=== PATIENT | male | born 1990 | race Caucasian/White ===

== ENCOUNTER 2016-07-01 14:08 | Emergency (ER) | payer MEDICAID ==
[2016-07-01] MEDS ORDERED: NALOXONE 2 MG/2 ML SYRINGE ONE (14:21)
[2016-07-01 14:27] VITALS: TEMP 98.4; BMI 22.3
[2016-07-01] MEDS ORDERED: ONDANSETRON HCL 4 MG/2 ML VIAL IV ONE (14:29)
[2016-07-01] MEDS ORDERED: NALOXONE 2 MG/2 ML SYRINGE IV STA (14:29)
--- NOTE | 2016-07-01 15:13 | EDPRACDOC ---
- General Information Chief Complaint: Altered Mental Status Time Seen by Provider: 07/01/16 15:07 Information Source: Patient Mode Of Arrival: Ambulance Home Medications: Home Medications No Home Medications 05/20/13 Allergies/Adverse Reactions: Allergies Allergy/AdvReac Type Severity Reaction Status Date / Time No Known Allergies Allergy Verified 07/01/16 14:27 - History of Present Illness Onset: TODAY HPI: EMS REPORTS PT WITH O2 SATS 50%, RESP RATE 2 UPON THEIR ARRIVAL. EMS BAGGED PT FOR ABOUT 2-3 MIN. FAMILY REPORTS PT HAD PERIORBITAL CYANOSIS. PT STATES HE TOOK A PAIN PILL OXY 30MG AND WENT TO SLEEP. PT DENIES SI/HI. DENIES ANY INTENTION OF HURTING HIMSELF. URI SYMPTOMS FOR SEVERAL DAYS. PT RECEIVED NARCAN IN ED. PT ADMITS TO SNORTING THE OXY. 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 - Treatment Prior to ED Arrival Reported Medications/Treatment EX[facility] EMS Treatment ALS IV No ED Past Medical History - History Reviewed Yes Nurses notes reviewed and agree except as marked EDM Review of Systems - Review of Systems ROS Negative Except as Marked: Yes All systems reviewed and were negative except as marked Constitutional: No Symptoms Reported Respiratory: No Symptoms Reported Cardiovascular: No Symptoms Reported - Physical Exam Constitutional: Alert (Awake), No apparent distress Oriented to: Time, Person, Place Last recorded Vital Signs: Last Vital Signs Temp 98.4 F 07/01/16 14:15 Pulse 122 H 07/01/16 14:26 Resp 18 07/01/16 14:26 BP 156/92 07/01/16 14:26 Pulse Ox 97 07/01/16 14:26 Oxygen Pulse Oxygen Saturation 97 O2 Device Oxygen Flow Rate Fraction of Inspired Oxygen ( FIO2) - HEENT Head: Normal ( normocephalic) Eye Exam: Normal (PERRL, EOMI, Sclera white) Oropharynx: Normal (Pharynx:Moist without exudate,Gums-no swelling) Nose: No Symptoms Reported (septum midline) Neck: Normal (FROM, trachea at midline) - Respiratory/Cardiovascular Respiratory: Normal - CTA (BBS clear to auscultation without adventitious sounds ) Cardiovascular: Normal (RRR without murmur, gallop or rub) - GI Auscultation: Normal (NABS) Palpation: Normal (Soft,No rebound or guarding, non distended) Tenderness: Non tender Bruno's Sign: Negative - Musculoskeletal Back: Normal (Non-Tender) Extremities: Normal (Normal tone, Pulses 2+ No cyanosis or edema, FROM) - Integumentary Skin: Normal, Warm, Dry Lymphatics: Normal (no adenopathy) - Neurologic Memory Impaired: Normal Motor Function: Normal (Normal tone, Pulses 2+ No cyanosis or edema, FROM) Cranial Nerve: Normal (CN II-X11 intact sensation, strength 5/5) Cerebellar: Normal Mood Description: Normal Perception: Normal - EKG EKG #1 EKG Time: 14:28 -: Yes EKG interpreted by me Rate: bpm: 130 [place]: Normal Rhythm: ST Block: None Hypertrophy: None ST: Normal Comments: NORMAL EKG Decision Time to Discharge: 15:40 - Departure Yes I personally saw and evaluated the patient. Disposition: Home Condition: Stable Final Diagnosis: Accidental overdose Qualifiers: Encounter type: initial encounter Qualified Code(s): T50.901A - Poisoning by unspecified drugs, medicaments and biological substances, accidental ( unintentional), initial encounter Instructions: Narcotic Abuse (ED) Education/Counseling Given To: Patient, Family Member Education/Counseling Given Regarding: Diagnosis Referrals: Conor Diaz MD [Primary Care Provider] - One Week Prescriptions: No Action No Home Medications 0 NA DIR #0 info Forms: Excuse Note
[2016-07-01 15:31] VITALS: BP 117/68
[2016-07-01 15:46] VITALS: PULSE 90
== END 2016-07-01 15:55 | disposition home or self-care (01) ==
LOC: ED 14:08
DX: T65.91XA Toxic effect of unspecified substance, accidental (unintentional), initial encounter (principal)
CPT/HCPCS: 93005; 96374; 96375; 99283; J2310; J2405